=== PATIENT | female | born 1965 | race African-American/Black ===

== ENCOUNTER → 2021-08-03 | Outpatient (CLI) | payer OTHER ==
--- NOTE | 2021-08-03 12:08 | RAD ---
2 views of the lumbar spine without comparison for back pain. FINDINGS: Straightening of normal lumbar lordosis. No fracture or acute osseous or alignment abnormal ity. Bulky facet arthrosis at multiple lumbar levels. Degenerative disc narrowing at L3-4, L4-5, and L5-S1. Pelvic phleboliths. Paramedian calcifications are likely vascular. IMPRESSION: 1. No acute osseous or alignment abnormality. 2. Multilevel degenerative disc disease and facet arthrosis as described. Electronically signed by: Tony Fulton MD (08/03/2021 12:06 PM) [id number]
== END ==
LOC: RAD 09:23
PROVIDERS: ATTEND Family Medicine
DX: Z02.71 Encounter for disability determination (principal); M47.816 Spondylosis without myelopathy or radiculopathy, lumbar region; M51.37 Other intervertebral disc degeneration, lumbosacral region; M48.07 Spinal stenosis, lumbosacral region; I87.8 Other specified disorders of veins
CPT/HCPCS: 72100